=== PATIENT | male | born 1995 | race Caucasian/White ===

== ENCOUNTER 2018-10-29 18:01 | Emergency (ER) | payer BC ==
[~2018-10-29] VITALS: Ht 172.7 cm; Wt 74.8 kg
[2018-10-29 18:21] VITALS: BP_SYST 138
--- NOTE | 2018-10-29 20:01 | NUR ---
Patient to ER bed 4 to gown for evaluation. Side rails up. Report given to Elba MÁRQUEZ.
--- NOTE | 2018-10-29 20:10 | NUR ---
2010 - Assumed care of pt. Pt states x 3 weeks has been having tension headaches to in between eyes, just above eyebrows. Pt states he feels like it is draining him mentally, and causing him to lose focus. Pt states that he has also been "feeling down" and "not really motivated" d/t headaches. Pt states that he is in the [place] and only has 3 weeks left. States he has some important exams coming up. Denies any medical history. A&OX4. Resp even and unlabored. Pt appears more calm after speaking w/ RN.
[2018-10-29 21:27] VITALS: BP_SYST 138
--- NOTE | 2018-10-29 21:29 | NUR ---
2125 - Patient left without being seen. Form signed. Pt encouraged to return if symptoms worsen, persist, or for any other concerns.
== END 2018-10-29 21:27 | disposition left against medical advice (07) ==
LOC: SED 18:01
DX: F41.9 Anxiety disorder, unspecified (principal); R51 Headache; R20.2 Paresthesia of skin; Z53.21 Procedure and treatment not carried out due to patient leaving prior to being seen by health care provider